=== PATIENT | female | born 2000 | race Two or more races ===

== ENCOUNTER 2022-02-13 19:43 | Emergency (ER) | payer OTHER ==
[~2022-02-13] VITALS: Ht 170.2 cm; Wt 70.3 kg
[2022-02-13] MEDS ORDERED: EC-NAPROSYN375 MG PO (20:17)
[2022-02-13] MEDS ORDERED: ORPHENADRINE C100 MG PO (20:17)
== END 2022-02-13 20:23 | disposition home or self-care (01) ==
LOC: ER 19:43
DX: M54.31 Sciatica, right side (principal)

== ENCOUNTER 2022-03-31 00:26 | Emergency (ER) | payer OTHER ==
[~2022-03-31] VITALS: Ht 170.2 cm; Wt 69.9 kg
[~2022-03-31 00:26] MED LIST: EC-NAPROSYN375 MG PO; ORPHENADRINE C100 MG PO
[2022-03-31] MEDS ORDERED: KETO10TA2 PO (02:38)
[2022-03-31] MEDS ORDERED: ORPHENADRINE C100 MG PO (02:38)
== END 2022-03-31 02:50 | disposition home or self-care (01) ==
LOC: ER 00:26
DX: M54.50 Low back pain, unspecified (principal)

== ENCOUNTER 2022-07-23 21:22 | Emergency (ER) | payer OTHER ==
[~2022-07-23] VITALS: Ht 170.2 cm; Wt 63.5 kg
[~2022-07-23 21:22] MED LIST changes: +KETO10TA2 PO
[2022-07-23] MEDS ORDERED: ZITHROMAX500 MG PO (22:52)
== END 2022-07-23 23:07 | disposition home or self-care (01) ==
LOC: ER 21:22
DX: A49.3 Mycoplasma infection, unspecified site (principal); Z20.822 Contact with and (suspected) exposure to COVID-19

== ENCOUNTER → 2022-11-29 | Emergency (ER) | payer OTHER ==
[~2022-11-29] VITALS: Ht 170.2 cm; Wt 63.5 kg
[~2022-11-29] MED LIST changes: +ZITHROMAX500 MG PO
== END | disposition home or self-care (01) ==
LOC: ER 22:49
DX: B00.2 Herpesviral gingivostomatitis and pharyngotonsillitis (principal)

== ENCOUNTER 2023-01-09 06:58 | Emergency (ER) | payer OTHER ==
[~2023-01-09] VITALS: Ht 170.2 cm; Wt 65.8 kg
[2023-01-09] MEDS ORDERED: ZITHROMAX500 MG PO (13:06)
[2023-01-09] MEDS ORDERED: MEDROLPACK PO (13:06)
[2023-01-09] MEDS ORDERED: ALBUTEROL1.25 MG/3 IH (13:10)
[2023-01-09] MEDS ORDERED: TUSNEL DM LIQU473 ML PO (13:10)
[2023-01-09] MEDS ORDERED: PROAIR RESPICL90 MCG IH (13:16)
== END 2023-01-09 13:23 | disposition home or self-care (01) ==
LOC: ER 06:58
DX: J45.901 Unspecified asthma with (acute) exacerbation (principal); Z20.822 Contact with and (suspected) exposure to COVID-19